=== PATIENT | male | born 1950 | race African-American/Black ===

== ENCOUNTER 2018-09-08 02:31 | Inpatient (IN) | payer OTHER ==
[2018-09-08] MEDS: ETOMIDATE 20 MG INJ IV (02:48)
[2018-09-08] MEDS: SUCCINYLCHOLINE CHLORIDE 100 MG/5 ML SYG IV (02:48)
[2018-09-08] MEDS ORDERED: PROPOFOL 100 ML (02:49)
[2018-09-08 02:58] LABS: ADD MAN DIFF? NO
[2018-09-08 03:02] LABS: WHITE BLOOD COUNT 11.9 10^3/ul (4.8-10.8)
[2018-09-08 03:02] LABS: ABNORMAL IP MESSAGE 1; BASOPHILS % 0.3 % (0.0-2.0); EOSINOPHILS % 0.2 % (0.0-7.0); HEMATOCRIT 31.3 % (42.0-52.0); HEMOGLOBIN 8.5 g/dl (14.0-18.0); LYMPHOCYTES # 0.9 10^3/ul (0.8-2.9); LYMPHOCYTES % 7.9 % (15.0-51.0); MEAN CORPUSCULAR HEMOGLOBIN 22.3 pg (29.0-33.0); MEAN CORPUSCULAR HGB CONC 27.2 g/dl (32.0-37.0); MEAN CORPUSCULAR VOLUME 82.2 fl (82.0-101.0); MEAN PLATELET VOLUME 9.5 fl (7.4-10.4); MONOCYTE # 0.9 10^3/ul (0.3-0.9); MONOCYTES % 7.6 % (0.0-11.0); NEUTROPHIL # 9.9 10^3/ul (1.6-7.5); NEUTROPHILS % 82.8 % (39.0-77.0); NUCLEATED RED BLOOD CELLS% 0.2 /100WBC (0.0-0.0); PLATELET COUNT 372 10^3/UL (140-415); POSITIVE DIFF @See below; RED BLOOD COUNT 3.81 10^6/ul (4.70-6.10); RED CELL DISTRIBUTION WIDTH 15.8 % (11.5-14.5)
[2018-09-08] MEDS: CEFEPIME 2GM/50 ML (PMX) 50 ML IVPB (03:11)
[2018-09-08] MEDS ORDERED: PROPOFOL 100 ML IV (03:15)
[2018-09-08 03:18] LABS: BLOOD UREA NITROGEN 32 mg/dl (7-20); CALCIUM 9.1 mg/dl (8.4-10.2); CHLORIDE 82 mmol/L (97-110); CREATININE 0.91 mg/dl (0.61-1.24); Estimated GFR > 60 mL/min (>60); GLUCOSE 222 mg/dl (70-220); POTASSIUM 5.9 mmol/L (3.5-5.1); SODIUM 139 mmol/L (135-144)
[2018-09-08 03:22] LABS: INR 1.42; PROTIME 17.6 Sec (11.9-14.9); PT RATIO 1.4
[2018-09-08 03:23] LABS: PARTIAL THROMBOPLASTIN TIME 40.5 Sec (23.0-35.0)
[2018-09-08 03:24] LABS: LACTIC ACID 2.4 mmol/L (0.5-2.0)
[2018-09-08] MEDS: MIDAZOLAM (DRIP) 50 mg/50 mL 50 ML IV ×3 (03:33→17:00)
[2018-09-08] MEDS: HYDROmorphONE 1 MG/ML SYG IV (03:34)
[2018-09-08] MEDS: SODIUM CHLORIDE 0.9% 1L BAG IV* (03:34)
[2018-09-08 03:39] LABS: ANION GAP 7 (5-13); TROPONIN-I 0.027 ng/ml (0.000-0.120)
[2018-09-08] MEDS: VANCOMYCIN 1 GM (PMX) 250 ML IVPB (03:39)
[2018-09-08 03:40] LABS: CARBON DIOXIDE 50 mmol/L (21-31)
[2018-09-08] MEDS ORDERED: NORepinephrine 8MG/250 ML (PMX 250 ML (03:45)
[2018-09-08 04:01] LABS: AADO2 Arterial 530.8 mmHg (7.0-24.0); Allen Test ACCEPTAB; Arterial Base Excess 12.9 mmol/L (-3.0-3); Arterial Blood Gas Oxygen Sat 95.2 mmHG (95.0-98.0); Arterial COHb 0.4 % (0.0-3.0); Arterial Fraction of Oxyhgb 94.4 % (93.0-99.0); Arterial MetHb 0.4 % (0.0-1.5); Arterial Total Hemglobin 8.4 g/dl (12.0-18.0); Arterial pCO2 93.7 mmhg (35-45); MODE VENT - AC; Site Left Radial
[2018-09-08] MEDS: NORepinephrine 8MG/250 ML (PMX 250 ML IV (04:05)
[2018-09-08] MEDS ORDERED: FENTAnyl (DRIP) 1000 mcg/100mL 100 ML IV (05:00)
[2018-09-08] MEDS ORDERED: IPRATROPIUM (HFA) 12.9 GM INHALER INH (05:00)
[2018-09-08] MEDS: INSULIN ASPART [NOVOLOG] 3 ML PEN SC ×5 (05:00→21:00)
[2018-09-08] MEDS ORDERED: ALBUTEROL HFA 8 GM INHALER INH (05:00)
[2018-09-08 05:45] LABS: LACTIC ACID 1.7 mmol/L (0.5-2.0)
[2018-09-08] MEDS: PANTOPRAZOLE 40 MG INJ IV (06:20)
[2018-09-08] MEDS: PIPER-TAZO 3.375 GM IV (PMX) 100 ML IVPB ×3 (06:20→17:28)
[2018-09-08] MEDS ORDERED: GLUCOSE GEL 15 GRAM TUBE PO ×2 (06:30)
[2018-09-08] MEDS ORDERED: GLUCOSE GEL 15 GRAM TUBE BUCCAL (06:30)
[2018-09-08] MEDS ORDERED: VANCOMYCIN IV PER PHARMACY XX (06:30)
[2018-09-08] MEDS ORDERED: GLUCAGON 1 MG INJ IM (06:30)
[2018-09-08] MEDS ORDERED: DEXTROSE 50% 50 ML SYRINGE IV ×2 (06:30)
[2018-09-08] MEDS: FENTAnyl (DRIP) 1000 mcg/100mL 100 ML IV ×3 (06:33→22:32)
[2018-09-08] MEDS ORDERED: ETOMIDATE 20 MG INJ (07:00)
[2018-09-08] MEDS: VANCOMYCIN 1 GM in 250 ML IVPB (07:20)
[2018-09-08] MEDS: SOD CHLORIDE 0.9% 1,000 ML IV ×2 (07:23→20:45)
[2018-09-08 07:36] LABS: Allen Test ACCEPTAB; Arterial Base Excess 19.2 mmol/L (-3.0-3); Arterial Blood Gas Oxygen Sat 96.4 mmHG (95.0-98.0); Arterial COHb 0.3 % (0.0-3.0); Arterial Fraction of Oxyhgb 95.7 % (93.0-99.0); Arterial MetHb 0.4 % (0.0-1.5); Arterial Total Hemglobin 8.7 g/dl (12.0-18.0); Arterial pCO2 53.6 mmhg (35-45); MODE VENT - AC; Site Left Radial
[2018-09-08] MEDS: ENOXAPARIN 30 MG/0.3 ML SYG SC ×2 (08:45→20:49)
[2018-09-08] MEDS: ENOXAPARIN 100 MG/ML SYG SC ×2 (08:47→20:49)
[2018-09-08 10:29] LABS: ADD MAN DIFF? NO
[2018-09-08 10:35] LABS: WHITE BLOOD COUNT 11.7 10^3/ul (4.8-10.8)
[2018-09-08 10:35] LABS: ABNORMAL IP MESSAGE 1; BASOPHILS % 0.1 % (0.0-2.0); EOSINOPHILS % 0.2 % (0.0-7.0); HEMATOCRIT 26.1 % (42.0-52.0); HEMOGLOBIN 7.4 g/dl (14.0-18.0); LYMPHOCYTES # 0.8 10^3/ul (0.8-2.9); MEAN CORPUSCULAR HEMOGLOBIN 22.6 pg (29.0-33.0); MEAN CORPUSCULAR HGB CONC 28.4 g/dl (32.0-37.0); MEAN CORPUSCULAR VOLUME 79.8 fl (82.0-101.0); MEAN PLATELET VOLUME 9.6 fl (7.4-10.4); MONOCYTES % 8.3 % (0.0-11.0); NEUTROPHIL # 9.8 10^3/ul (1.6-7.5); NEUTROPHILS % 83.6 % (39.0-77.0); NUCLEATED RED BLOOD CELLS% 0.3 /100WBC (0.0-0.0); PLATELET COUNT 313 10^3/UL (140-415); POSITIVE DIFF @See below; RED BLOOD COUNT 3.27 10^6/ul (4.70-6.10); RED CELL DISTRIBUTION WIDTH 15.9 % (11.5-14.5)
[2018-09-08 10:52] LABS: LACTIC ACID 1.8 mmol/L (0.5-2.0)
[2018-09-08 10:57] LABS: CREATINE KINASE < 20 IU/L (23-200)
[2018-09-08 11:02] LABS: CK-MB 0.26 ng/ml (0.0-2.4)
[2018-09-08 11:06] LABS: TROPONIN-I 0.046 ng/ml (0.000-0.120)
[2018-09-08 11:16] LABS: ALANINE AMINOTRANSFERASE 28 IU/L (13-69); ALBUMIN 2.9 g/dl (3.3-4.9); ALBUMIN/GLOBULIN RATIO 1.03; ALKALINE PHOSPHATASE 70 IU/L (42-121); ASPARTATE AMINO TRANSFERASE 15 IU/L (15-46); BILIRUBIN,INDIRECT 0.4 mg/dl (0-1.1); BILIRUBIN,TOTAL 0.4 mg/dl (0.2-1.3); BLOOD UREA NITROGEN 30 mg/dl (7-20); CALCIUM 8.3 mg/dl (8.4-10.2); CHLORIDE 90 mmol/L (97-110); CREATININE 0.69 mg/dl (0.61-1.24); Estimated GFR > 60 mL/min (>60); GLUCOSE 118 mg/dl (70-220); POTASSIUM 4.7 mmol/L (3.5-5.1); SODIUM 138 mmol/L (135-144); TOTAL PROTEIN 5.7 g/dl (6.1-8.1)
[2018-09-08 11:19] LABS: IRON 43 ug/dl (35-150)
[2018-09-08 11:25] LABS: ANION GAP 7 (5-13)
[2018-09-08 11:27] LABS: CARBON DIOXIDE 41 mmol/L (21-31)
[2018-09-08 11:28] LABS: % IRON SATURATION 18 % SAT (22-52); TOTAL IRON BINDING CAPACITY 243 ug/dl (241-421)
[2018-09-08] MEDS: VANCOMYCIN 1.5 GM in SOD CHLORIDE 0.9% 250 ML IVPB (15:20)
[2018-09-08 17:25] LABS: LACTIC ACID 1.7 mmol/L (0.5-2.0)
[2018-09-08] MEDS: ACETAMINOPHEN 650MG/20.3ML CUP PO (18:25)
[2018-09-08 22:50] LABS: LACTIC ACID 1.5 mmol/L (0.5-2.0)
[2018-09-09] MEDS: PIPER-TAZO 3.375 GM IV (PMX) 100 ML IVPB ×4 (00:09→17:50)
[2018-09-09] MEDS: MIDAZOLAM (DRIP) 50 mg/50 mL 50 ML IV ×3 (00:41→18:43)
[2018-09-09] MEDS: INSULIN ASPART [NOVOLOG] 3 ML PEN SC ×6 (00:43→20:51)
[2018-09-09] MEDS: NORepinephrine 8MG/250 ML (PMX 250 ML IV (00:44)
[2018-09-09] MEDS: VANCOMYCIN 1.5 GM in SOD CHLORIDE 0.9% 250 ML IVPB (04:01)
[2018-09-09] MEDS: PANTOPRAZOLE 40 MG INJ IV (05:04)
[2018-09-09 05:40] LABS: ADD MAN DIFF? NO
[2018-09-09 05:43] LABS: BASOPHIL # 0.1 10^3/ul (0.0-0.1); BASOPHILS % 0.6 % (0.0-2.0); EOSINOPHILS # 0.1 10^3/ul (0.0-0.5); EOSINOPHILS % 0.6 % (0.0-7.0); HEMATOCRIT 24.4 % (42.0-52.0); HEMOGLOBIN 7.1 g/dl (14.0-18.0); LYMPHOCYTES # 0.9 10^3/ul (0.8-2.9); LYMPHOCYTES % 8.1 % (15.0-51.0); MEAN CORPUSCULAR HEMOGLOBIN 22.8 pg (29.0-33.0); MEAN CORPUSCULAR HGB CONC 29.1 g/dl (32.0-37.0); MEAN CORPUSCULAR VOLUME 78.2 fl (82.0-101.0); MEAN PLATELET VOLUME 9.7 fl (7.4-10.4); MONOCYTE # 0.8 10^3/ul (0.3-0.9); MONOCYTES % 7.8 % (0.0-11.0); NEUTROPHIL # 8.6 10^3/ul (1.6-7.5); NEUTROPHILS % 81.9 % (39.0-77.0); NUCLEATED RED BLOOD CELLS% 0.4 /100WBC (0.0-0.0); PLATELET COUNT 306 10^3/UL (140-415); RED BLOOD COUNT 3.12 10^6/ul (4.70-6.10); RED CELL DISTRIBUTION WIDTH 16.7 % (11.5-14.5)
[2018-09-09 05:43] LABS: WHITE BLOOD COUNT 10.5 10^3/ul (4.8-10.8)
[2018-09-09 06:17] LABS: BLOOD UREA NITROGEN 24 mg/dl (7-20); CALCIUM 7.8 mg/dl (8.4-10.2); CHLORIDE 95 mmol/L (97-110); CREATININE 0.88 mg/dl (0.61-1.24); Estimated GFR > 60 mL/min (>60); GLUCOSE 179 mg/dl (70-220); POTASSIUM 4.1 mmol/L (3.5-5.1); SODIUM 140 mmol/L (135-144)
[2018-09-09 06:26] LABS: ANION GAP 5 (5-13)
[2018-09-09 06:50] LABS: CARBON DIOXIDE 40 mmol/L (21-31)
[2018-09-09] MEDS: ENOXAPARIN 60 MG/0.6 ML SYG SC ×2 (08:09→20:52)
[2018-09-09 10:40] LABS: AADO2 Arterial 263.6 mmHg (7.0-24.0); Allen Test ACCEPTAB; Arterial Base Excess 13.9 mmol/L (-3.0-3); Arterial Blood Gas Oxygen Sat 89.8 mmHG (95.0-98.0); Arterial COHb 0.7 % (0.0-3.0); Arterial Fraction of Oxyhgb 88.8 % (93.0-99.0); Arterial HCO3 36.6 mmol/L (22.0-26.0); Arterial MetHb 0.4 % (0.0-1.5); Arterial Total Hemglobin 8.5 g/dl (12.0-18.0); Arterial pCO2 38.1 mmhg (35-45); MODE VENT - AC; Site Left Radial
[2018-09-09] MEDS: SOD CHLORIDE 0.9% 1,000 ML IV ×2 (10:50→20:33)
[2018-09-09] MEDS: LIDOCAINE 1% (MPF) 5 ML VIAL SC (11:00)
[2018-09-09] MEDS: IOHEXOL 300MG/ML 150 ML BTL (11:39)
[2018-09-09] MEDS: SOD CHLORIDE 0.9% 100 ML (11:39)
[2018-09-09 15:34] LABS: VANCOMYCIN,TROUGH 17.5 ug/ml (10.0-20.0)
[2018-09-09] MEDS: FENTAnyl (DRIP) 1000 mcg/100mL 100 ML IV (17:15)
[2018-09-09] MEDS: VANCOMYCIN 1.25 GM in SOD CHLORIDE 0.9% 250 ML IVPB (17:50)
[2018-09-09] MEDS: TIMOLOL 0.5% 5 ML OPH RIGHT EYE (20:49)
[2018-09-09] MEDS: INSULIN GLARGINE [LANTus] (100 UNITS/ML) SYG SC (20:51)
[2018-09-10] MEDS: PIPER-TAZO 3.375 GM IV (PMX) 100 ML IVPB ×5 (00:17→23:28)
[2018-09-10] MEDS: INSULIN ASPART [NOVOLOG] 3 ML PEN SC ×6 (00:39→20:32)
[2018-09-10] MEDS: ACETAMINOPHEN 650MG/20.3ML CUP PO ×2 (05:13→09:09)
[2018-09-10] MEDS: LANSOPRAZOLE 30 MG CAP GTB (05:13)
[2018-09-10] MEDS: VANCOMYCIN 1.25 GM in SOD CHLORIDE 0.9% 250 ML IVPB ×2 (05:14→17:55)
[2018-09-10 05:15] LABS: ADD MAN DIFF? NO
[2018-09-10] MEDS: SOD CHLORIDE 0.9% 1,000 ML IV ×2 (05:15→23:13)
[2018-09-10 05:23] LABS: ABNORMAL IP MESSAGE 1; BASOPHILS % 0.4 % (0.0-2.0); EOSINOPHILS # 0.3 10^3/ul (0.0-0.5); EOSINOPHILS % 2.7 % (0.0-7.0); LYMPHOCYTES # 0.8 10^3/ul (0.8-2.9); LYMPHOCYTES % 7.2 % (15.0-51.0); MEAN CORPUSCULAR HEMOGLOBIN 22.3 pg (29.0-33.0); MEAN CORPUSCULAR VOLUME 79.6 fl (82.0-101.0); MEAN PLATELET VOLUME 9.7 fl (7.4-10.4); MONOCYTE # 0.9 10^3/ul (0.3-0.9); MONOCYTES % 8.3 % (0.0-11.0); NEUTROPHIL # 8.8 10^3/ul (1.6-7.5); NEUTROPHILS % 80.8 % (39.0-77.0); NUCLEATED RED BLOOD CELLS% 0.2 /100WBC (0.0-0.0); PLATELET COUNT 278 10^3/UL (140-415); POSITIVE DIFF @See below; RED BLOOD COUNT 3.14 10^6/ul (4.70-6.10); RED CELL DISTRIBUTION WIDTH 17.2 % (11.5-14.5)
[2018-09-10 05:23] LABS: WHITE BLOOD COUNT 10.9 10^3/ul (4.8-10.8)
[2018-09-10] MEDS: NORepinephrine 8MG/250 ML (PMX 250 ML IV (05:23)
[2018-09-10 05:50] LABS: MAGNESIUM 2.8 mg/dl (1.7-2.5)
[2018-09-10 05:50] LABS: PHOSPHORUS 2.4 mg/dl (2.5-4.9)
[2018-09-10 05:56] LABS: BLOOD UREA NITROGEN 23 mg/dl (7-20); CALCIUM 8.3 mg/dl (8.4-10.2); CHLORIDE 99 mmol/L (97-110); CREATININE 0.96 mg/dl (0.61-1.24); Estimated GFR > 60 mL/min (>60); GLUCOSE 210 mg/dl (70-220); POTASSIUM 4.3 mmol/L (3.5-5.1); SODIUM 143 mmol/L (135-144)
[2018-09-10 06:10] LABS: ANION GAP 6 (5-13)
[2018-09-10 06:18] LABS: CARBON DIOXIDE 38 mmol/L (21-31)
[2018-09-10 07:41] LABS: Allen Test ACCEPTAB; Arterial Blood Gas Oxygen Sat 93.1 mmHG (95.0-98.0); Arterial COHb 0.2 % (0.0-3.0); Arterial Fraction of Oxyhgb 92.4 % (93.0-99.0); Arterial HCO3 42.2 mmol/L (22.0-26.0); Arterial MetHb 0.5 % (0.0-1.5); Arterial Total Hemglobin 8.2 g/dl (12.0-18.0); Arterial pCO2 64.3 mmhg (35-45); MODE VENT - AC; Site Left Radial
[2018-09-10] MEDS: ENOXAPARIN 60 MG/0.6 ML SYG SC ×2 (09:00→20:29)
[2018-09-10] MEDS: TIMOLOL 0.5% 5 ML OPH RIGHT EYE ×2 (09:04→20:26)
[2018-09-10 11:43] LABS: IMMEDIATE SPIN CROSSMATCH 1 2
[2018-09-10] MEDS: MIDAZOLAM (DRIP) 50 mg/50 mL 50 ML IV (11:58)
[2018-09-10] MEDS: INSULIN GLARGINE [LANTus] (100 UNITS/ML) SYG SC ×2 (12:37→20:31)
[2018-09-10] MEDS: LATANOPROST 0.005% 2.5 ML OPH BOTH EYES (21:00)
[2018-09-11] MEDS: MIDAZOLAM (DRIP) 50 mg/50 mL 50 ML IV ×3 (01:14→23:37)
[2018-09-11] MEDS: INSULIN ASPART [NOVOLOG] 3 ML PEN SC ×6 (01:43→20:29)
[2018-09-11] MEDS: FENTAnyl (DRIP) 1000 mcg/100mL 100 ML IV ×2 (01:46→23:27)
[2018-09-11] MEDS: LANSOPRAZOLE 30 MG CAP GTB (05:08)
[2018-09-11] MEDS: PIPER-TAZO 3.375 GM IV (PMX) 100 ML IVPB ×4 (05:08→23:29)
[2018-09-11 05:18] LABS: ADD MAN DIFF? NO
[2018-09-11 05:20] LABS: ABNORMAL IP MESSAGE 1; BASOPHIL # 0.1 10^3/ul (0.0-0.1); BASOPHILS % 0.4 % (0.0-2.0); EOSINOPHILS # 0.4 10^3/ul (0.0-0.5); EOSINOPHILS % 3.2 % (0.0-7.0); HEMATOCRIT 27.6 % (42.0-52.0); HEMOGLOBIN 7.9 g/dl (14.0-18.0); LYMPHOCYTES # 0.7 10^3/ul (0.8-2.9); LYMPHOCYTES % 5.7 % (15.0-51.0); MEAN CORPUSCULAR HEMOGLOBIN 23.5 pg (29.0-33.0); MEAN CORPUSCULAR HGB CONC 28.6 g/dl (32.0-37.0); MEAN CORPUSCULAR VOLUME 82.1 fl (82.0-101.0); MEAN PLATELET VOLUME 10.2 fl (7.4-10.4); MONOCYTE # 0.8 10^3/ul (0.3-0.9); MONOCYTES % 6.2 % (0.0-11.0); NEUTROPHIL # 10.1 10^3/ul (1.6-7.5); NEUTROPHILS % 83.8 % (39.0-77.0); NUCLEATED RED BLOOD CELLS% 0.3 /100WBC (0.0-0.0); PLATELET COUNT 238 10^3/UL (140-415); POSITIVE DIFF @See below; RED BLOOD COUNT 3.36 10^6/ul (4.70-6.10); RED CELL DISTRIBUTION WIDTH 17.4 % (11.5-14.5)
[2018-09-11 05:20] LABS: WHITE BLOOD COUNT 12.1 10^3/ul (4.8-10.8)
[2018-09-11 05:51] LABS: BLOOD UREA NITROGEN 25 mg/dl (7-20); CALCIUM 8.6 mg/dl (8.4-10.2); CHLORIDE 100 mmol/L (97-110); CREATININE 0.87 mg/dl (0.61-1.24); Estimated GFR > 60 mL/min (>60); GLUCOSE 185 mg/dl (70-220); MAGNESIUM 2.9 mg/dl (1.7-2.5); PHOSPHORUS 2.9 mg/dl (2.5-4.9); POTASSIUM 4.4 mmol/L (3.5-5.1); SODIUM 144 mmol/L (135-144)
[2018-09-11 05:52] LABS: VANCOMYCIN,TROUGH 16.8 ug/ml (10.0-20.0)
[2018-09-11] MEDS: VANCOMYCIN 1.25 GM in SOD CHLORIDE 0.9% 250 ML IVPB ×2 (06:19→17:40)
[2018-09-11 06:46] LABS: ANION GAP 6 (5-13)
[2018-09-11 06:47] LABS: CARBON DIOXIDE 38 mmol/L (21-31)
[2018-09-11 07:32] LABS: Allen Test ACCEPTAB; Arterial Base Excess 12.9 mmol/L (-3.0-3); Arterial Blood Gas Oxygen Sat 90.9 mmHG (95.0-98.0); Arterial COHb 0.4 % (0.0-3.0); Arterial Fraction of Oxyhgb 90.1 % (93.0-99.0); Arterial HCO3 39.2 mmol/L (22.0-26.0); Arterial MetHb 0.5 % (0.0-1.5); Arterial Total Hemglobin 9.4 g/dl (12.0-18.0); Arterial pCO2 61.7 mmhg (35-45); MODE VENT - AC; Site Left Radial
[2018-09-11] MEDS ORDERED: FUROSEMIDE 40 MG INJ (08:08)
[2018-09-11] MEDS: TIMOLOL 0.5% 5 ML OPH RIGHT EYE ×2 (08:16→20:26)
[2018-09-11] MEDS: ENOXAPARIN 60 MG/0.6 ML SYG SC ×2 (08:17→20:28)
[2018-09-11] MEDS: FUROSEMIDE 40 MG INJ IV (09:15)
[2018-09-11] MEDS: SOD CHLORIDE 0.9% 1,000 ML IV (13:00)
[2018-09-11] MEDS: NORepinephrine 8MG/250 ML (PMX 250 ML IV (14:44)
[2018-09-11] MEDS: ACETAMINOPHEN 650MG/20.3ML CUP PO (15:48)
[2018-09-11] MEDS: INSULIN GLARGINE [LANTus] (100 UNITS/ML) SYG SC (20:27)
[2018-09-11] MEDS: LATANOPROST 0.005% 2.5 ML OPH BOTH EYES (20:29)
[2018-09-12] MEDS: INSULIN ASPART [NOVOLOG] 3 ML PEN SC ×3 (01:04→09:25)
[2018-09-12] MEDS: PIPER-TAZO 3.375 GM IV (PMX) 100 ML IVPB ×4 (05:09→23:34)
[2018-09-12] MEDS: LANSOPRAZOLE 30 MG CAP GTB (05:09)
[2018-09-12 05:29] LABS: ADD MAN DIFF? NO
[2018-09-12 05:31] LABS: ABNORMAL IP MESSAGE 1; BASOPHILS % 0.3 % (0.0-2.0); EOSINOPHILS # 0.2 10^3/ul (0.0-0.5); HEMOGLOBIN 8.2 g/dl (14.0-18.0); LYMPHOCYTES # 0.6 10^3/ul (0.8-2.9); LYMPHOCYTES % 5.5 % (15.0-51.0); MEAN CORPUSCULAR HEMOGLOBIN 23.6 pg (29.0-33.0); MEAN CORPUSCULAR HGB CONC 28.3 g/dl (32.0-37.0); MEAN CORPUSCULAR VOLUME 83.3 fl (82.0-101.0); MEAN PLATELET VOLUME 10.2 fl (7.4-10.4); MONOCYTE # 0.9 10^3/ul (0.3-0.9); MONOCYTES % 8.2 % (0.0-11.0); NEUTROPHIL # 9.5 10^3/ul (1.6-7.5); NEUTROPHILS % 83.2 % (39.0-77.0); NUCLEATED RED BLOOD CELLS% 0.2 /100WBC (0.0-0.0); PLATELET COUNT 244 10^3/UL (140-415); POSITIVE DIFF @See below; RED BLOOD COUNT 3.48 10^6/ul (4.70-6.10); RED CELL DISTRIBUTION WIDTH 18.3 % (11.5-14.5)
[2018-09-12 05:31] LABS: WHITE BLOOD COUNT 11.5 10^3/ul (4.8-10.8)
[2018-09-12] MEDS: VANCOMYCIN 1.25 GM in SOD CHLORIDE 0.9% 250 ML IVPB ×2 (05:40→17:24)
[2018-09-12 06:51] LABS: ANION GAP 5 (5-13); BLOOD UREA NITROGEN 30 mg/dl (7-20); CALCIUM 8.6 mg/dl (8.4-10.2); CARBON DIOXIDE 39 mmol/L (21-31); CHLORIDE 103 mmol/L (97-110); CREATININE 1.01 mg/dl (0.61-1.24); Estimated GFR > 60 mL/min (>60); GLUCOSE 219 mg/dl (70-220); POTASSIUM 4.7 mmol/L (3.5-5.1); SODIUM 147 mmol/L (135-144)
[2018-09-12 07:41] LABS: AADO2 Arterial 294.7 mmHg (7.0-24.0); Allen Test ACCEPTAB; Arterial Base Excess 10.4 mmol/L (-3.0-3); Arterial Blood Gas Oxygen Sat 89.9 mmHG (95.0-98.0); Arterial COHb 0.3 % (0.0-3.0); Arterial Fraction of Oxyhgb 89.1 % (93.0-99.0); Arterial HCO3 37.4 mmol/L (22.0-26.0); Arterial MetHb 0.6 % (0.0-1.5); Arterial pCO2 64.9 mmhg (35-45); MODE VENT - AC; Site Left Radial
[2018-09-12] MEDS: ENOXAPARIN 60 MG/0.6 ML SYG SC ×2 (09:16→20:37)
[2018-09-12] MEDS: ACETAMINOPHEN 650MG/20.3ML CUP PO (09:16)
[2018-09-12] MEDS: TIMOLOL 0.5% 5 ML OPH RIGHT EYE ×2 (09:17→20:36)
[2018-09-12] MEDS: MIDAZOLAM (DRIP) 50 mg/50 mL 50 ML IV ×3 (10:01→20:37)
[2018-09-12] MEDS: ACCU-CHEK XX ×14 (10:30→23:26)
[2018-09-12] MEDS ORDERED: DEXTROSE 50% 50 ML SYRINGE IV ×2 (10:30)
[2018-09-12] MEDS: INSULIN HUMAN REGULAR 100 UNIT in SOD CHLORIDE 0.9% 99 ML IV (12:23)
[2018-09-12] MEDS: FLUCONAZOLE 100 MG TAB PO (15:00)
[2018-09-12] MEDS: BALSAM PERU/CASTOR OIL 60 GM TUBE TOP (15:00)
[2018-09-12] MEDS: POLYETHYLENE GLYCOL 17 GM PACKET NGT (17:43)
[2018-09-12] MEDS: FENTAnyl (DRIP) 1000 mcg/100mL 100 ML IV (19:25)
[2018-09-12] MEDS: DOCUSATE SODIUM 10 MG/ML (10ML CUP) NGT (20:36)
[2018-09-12] MEDS: LATANOPROST 0.005% 2.5 ML OPH BOTH EYES (20:36)
[2018-09-13] MEDS: ACCU-CHEK XX ×24 (00:37→23:24)
[2018-09-13 05:08] LABS: ADD MAN DIFF? NO
[2018-09-13 05:13] LABS: ABNORMAL IP MESSAGE 1; BASOPHILS % 0.4 % (0.0-2.0); EOSINOPHILS # 0.2 10^3/ul (0.0-0.5); EOSINOPHILS % 1.8 % (0.0-7.0); HEMATOCRIT 28.8 % (42.0-52.0); LYMPHOCYTES # 0.8 10^3/ul (0.8-2.9); LYMPHOCYTES % 7.2 % (15.0-51.0); MEAN CORPUSCULAR HEMOGLOBIN 23.1 pg (29.0-33.0); MEAN CORPUSCULAR HGB CONC 27.8 g/dl (32.0-37.0); MONOCYTE # 0.9 10^3/ul (0.3-0.9); MONOCYTES % 8.2 % (0.0-11.0); NEUTROPHIL # 8.5 10^3/ul (1.6-7.5); NEUTROPHILS % 81.6 % (39.0-77.0); PLATELET COUNT 220 10^3/UL (140-415); POSITIVE DIFF @See below; RED BLOOD COUNT 3.47 10^6/ul (4.70-6.10); RED CELL DISTRIBUTION WIDTH 19.2 % (11.5-14.5)
[2018-09-13 05:13] LABS: WHITE BLOOD COUNT 10.4 10^3/ul (4.8-10.8)
[2018-09-13] MEDS: LANSOPRAZOLE 30 MG CAP GTB (05:25)
[2018-09-13] MEDS: PIPER-TAZO 3.375 GM IV (PMX) 100 ML IVPB ×4 (05:25→23:24)
[2018-09-13 05:32] LABS: BLOOD UREA NITROGEN 36 mg/dl (7-20); CALCIUM 8.9 mg/dl (8.4-10.2); CHLORIDE 104 mmol/L (97-110); CREATININE 1.24 mg/dl (0.61-1.24); Estimated GFR > 60 mL/min (>60); GLUCOSE 105 mg/dl (70-220); MAGNESIUM 3.2 mg/dl (1.7-2.5); PHOSPHORUS 4.2 mg/dl (2.5-4.9); POTASSIUM 4.8 mmol/L (3.5-5.1); SODIUM 147 mmol/L (135-144)
[2018-09-13] MEDS: MIDAZOLAM (DRIP) 50 mg/50 mL 50 ML IV ×2 (05:34→19:31)
[2018-09-13 05:38] LABS: ANION GAP 3 (5-13)
[2018-09-13 05:59] LABS: CARBON DIOXIDE 40 mmol/L (21-31)
[2018-09-13] MEDS: VANCOMYCIN 1.25 GM in SOD CHLORIDE 0.9% 250 ML IVPB (06:00)
[2018-09-13 09:13] LABS: AADO2 Arterial 508.1 mmHg (7.0-24.0); Allen Test ACCEPTAB; Arterial Base Excess 12.4 mmol/L (-3.0-3); Arterial Blood Gas Oxygen Sat 86.8 mmHG (95.0-98.0); Arterial COHb 0.4 % (0.0-3.0); Arterial Fraction of Oxyhgb 86.3 % (93.0-99.0); Arterial HCO3 40.4 mmol/L (22.0-26.0); Arterial MetHb 0.2 % (0.0-1.5); Arterial pCO2 76.7 mmhg (35-45); MODE VENT - AC; Site Left Radial
[2018-09-13] MEDS: FLUCONAZOLE 100 MG TAB PO (09:18)
[2018-09-13] MEDS: DOCUSATE SODIUM 10 MG/ML (10ML CUP) NGT ×2 (09:18→21:00)
[2018-09-13] MEDS: ENOXAPARIN 60 MG/0.6 ML SYG SC ×2 (09:19→21:39)
[2018-09-13] MEDS: BALSAM PERU/CASTOR OIL 60 GM TUBE TOP (09:19)
[2018-09-13] MEDS: POLYETHYLENE GLYCOL 17 GM PACKET NGT (09:19)
[2018-09-13] MEDS: TIMOLOL 0.5% 5 ML OPH RIGHT EYE ×2 (09:20→21:37)
[2018-09-13] MEDS: FENTAnyl (DRIP) 1000 mcg/100mL 100 ML IV (11:25)
[2018-09-13] MEDS: EPINEPHrine 0.1 MG/ML SYG IV (11:45)
[2018-09-13] MEDS: ACETYLCYSTEINE 20% 4 ML VIAL NEB (11:50)
[2018-09-13 12:31] LABS: AADO2 Arterial 568.8 mmHg (7.0-24.0); Allen Test ACCEPTAB; Arterial Blood Gas Oxygen Sat 73.2 mmHG (95.0-98.0); Arterial COHb 0.4 % (0.0-3.0); Arterial Fraction of Oxyhgb 72.7 % (93.0-99.0); Arterial MetHb 0.3 % (0.0-1.5); Arterial pCO2 96.6 mmhg (35-45); MODE VENT - AC; Site Left Radial
[2018-09-13] MEDS: NORepinephrine 8MG/250 ML (PMX 250 ML IV ×2 (13:32→21:34)
[2018-09-13 17:11] LABS: VANCOMYCIN,TROUGH 26.9 ug/ml (10.0-20.0)
[2018-09-13] MEDS: LATANOPROST 0.005% 2.5 ML OPH BOTH EYES (21:37)
[2018-09-14] MEDS: ACCU-CHEK XX ×24 (00:30→23:35)
[2018-09-14] MEDS: ACETAMINOPHEN 650 MG SUPP PR (03:46)
[2018-09-14] MEDS: FENTAnyl (DRIP) 1000 mcg/100mL 100 ML IV ×2 (04:13→20:33)
[2018-09-14 05:07] LABS: ADD MAN DIFF? NO
[2018-09-14 05:08] LABS: ABNORMAL IP MESSAGE 1; BASOPHILS % 0.2 % (0.0-2.0); EOSINOPHILS % 0.2 % (0.0-7.0); HEMATOCRIT 30.3 % (42.0-52.0); HEMOGLOBIN 8.5 g/dl (14.0-18.0); LYMPHOCYTES # 1.1 10^3/ul (0.8-2.9); LYMPHOCYTES % 8.9 % (15.0-51.0); MEAN CORPUSCULAR HEMOGLOBIN 22.9 pg (29.0-33.0); MEAN CORPUSCULAR HGB CONC 28.1 g/dl (32.0-37.0); MEAN CORPUSCULAR VOLUME 81.7 fl (82.0-101.0); MEAN PLATELET VOLUME 10.1 fl (7.4-10.4); MONOCYTES % 8.1 % (0.0-11.0); NEUTROPHIL # 10.3 10^3/ul (1.6-7.5); NEUTROPHILS % 81.7 % (39.0-77.0); PLATELET COUNT 291 10^3/UL (140-415); POSITIVE DIFF @See below; RED BLOOD COUNT 3.71 10^6/ul (4.70-6.10); RED CELL DISTRIBUTION WIDTH 18.9 % (11.5-14.5)
[2018-09-14 05:08] LABS: WHITE BLOOD COUNT 12.6 10^3/ul (4.8-10.8)
[2018-09-14 05:31] LABS: ANION GAP 6 (5-13); BLOOD UREA NITROGEN 48 mg/dl (7-20); CALCIUM 8.6 mg/dl (8.4-10.2); CARBON DIOXIDE 36 mmol/L (21-31); CHLORIDE 109 mmol/L (97-110); CREATININE 1.27 mg/dl (0.61-1.24); Estimated GFR > 60 mL/min (>60); GLUCOSE 101 mg/dl (70-220); POTASSIUM 4.9 mmol/L (3.5-5.1); SODIUM 151 mmol/L (135-144)
[2018-09-14] MEDS: PIPER-TAZO 3.375 GM IV (PMX) 100 ML IVPB ×4 (05:41→23:35)
[2018-09-14] MEDS: LANSOPRAZOLE 30 MG CAP GTB (05:41)
[2018-09-14] MEDS: MIDAZOLAM (DRIP) 50 mg/50 mL 50 ML IV ×2 (07:23→19:55)
[2018-09-14] MEDS: NORepinephrine 8MG/250 ML (PMX 250 ML IV ×2 (07:24→17:12)
[2018-09-14] MEDS: INSULIN HUMAN REGULAR 100 UNIT in SOD CHLORIDE 0.9% 99 ML IV (07:25)
[2018-09-14 07:26] LABS: AADO2 Arterial 609.9 mmHg (7.0-24.0); Allen Test ACCEPTAB; Arterial Base Excess 9.5 mmol/L (-3.0-3); Arterial Blood Gas Oxygen Sat 89.7 mmHG (95.0-98.0); Arterial COHb 0.3 % (0.0-3.0); Arterial Fraction of Oxyhgb 89.1 % (93.0-99.0); Arterial HCO3 34.1 mmol/L (22.0-26.0); Arterial MetHb 0.4 % (0.0-1.5); Arterial pCO2 46.8 mmhg (35-45); MODE VENT - AC; Site Left Radial
[2018-09-14] MEDS: TIMOLOL 0.5% 5 ML OPH RIGHT EYE ×2 (08:44→21:41)
[2018-09-14] MEDS: DOCUSATE SODIUM 10 MG/ML (10ML CUP) NGT ×2 (08:44→21:40)
[2018-09-14] MEDS: FLUCONAZOLE 100 MG TAB PO (08:44)
[2018-09-14] MEDS: POLYETHYLENE GLYCOL 17 GM PACKET NGT (08:44)
[2018-09-14] MEDS: ENOXAPARIN 60 MG/0.6 ML SYG SC ×2 (08:46→21:53)
[2018-09-14] MEDS: BALSAM PERU/CASTOR OIL 60 GM TUBE TOP (08:48)
[2018-09-14] MEDS: ACETYLCYSTEINE 20% 4 ML VIAL NEB ×3 (10:00→20:46)
[2018-09-14] MEDS: ALBUTEROL 0.083% (NEB) 2.5 MG/3 ML AMP HHN (10:00)
[2018-09-14] MEDS: VANCOMYCIN 1.25 GM in SOD CHLORIDE 0.9% 250 ML IVPB (10:33)
[2018-09-14] MEDS: ALBUTEROL HFA 8 GM INHALER INH ×2 (13:19→20:46)
[2018-09-14] MEDS: LATANOPROST 0.005% 2.5 ML OPH BOTH EYES (21:41)
[2018-09-15] MEDS: ACCU-CHEK XX ×15 (00:30→14:20)
[2018-09-15] MEDS: MIDAZOLAM (DRIP) 50 mg/50 mL 50 ML IV ×2 (02:00→13:34)
[2018-09-15] MEDS: ALBUTEROL HFA 8 GM INHALER INH ×3 (02:50→13:42)
[2018-09-15] MEDS: ACETYLCYSTEINE 20% 4 ML VIAL NEB ×3 (03:00→13:42)
[2018-09-15 04:56] LABS: ADD MAN DIFF? NO
[2018-09-15] MEDS: NORepinephrine 8MG/250 ML (PMX 250 ML IV ×2 (05:00→10:54)
[2018-09-15 05:12] LABS: AADO2 Arterial 432.2 mmHg (7.0-24.0); Allen Test ACCEPTAB; Arterial Base Excess 7.7 mmol/L (-3.0-3); Arterial Blood Gas Oxygen Sat 93.8 mmHG (95.0-98.0); Arterial COHb 0.3 % (0.0-3.0); Arterial Fraction of Oxyhgb 93.2 % (93.0-99.0); Arterial HCO3 34.1 mmol/L (22.0-26.0); Arterial MetHb 0.3 % (0.0-1.5); Arterial pCO2 59.8 mmhg (35-45); MODE VENT - AC; Site Left Radial
[2018-09-15] MEDS: LANSOPRAZOLE 30 MG CAP GTB (05:18)
[2018-09-15] MEDS: PIPER-TAZO 3.375 GM IV (PMX) 100 ML IVPB (05:19)
[2018-09-15 05:20] LABS: WHITE BLOOD COUNT 13.2 10^3/ul (4.8-10.8)
[2018-09-15 05:20] LABS: ABNORMAL IP MESSAGE 1; BASOPHILS % 0.2 % (0.0-2.0); EOSINOPHILS % 0.2 % (0.0-7.0); HEMATOCRIT 29.4 % (42.0-52.0); HEMOGLOBIN 8.3 g/dl (14.0-18.0); LYMPHOCYTES # 1.1 10^3/ul (0.8-2.9); LYMPHOCYTES % 8.2 % (15.0-51.0); MEAN CORPUSCULAR HEMOGLOBIN 23.5 pg (29.0-33.0); MEAN CORPUSCULAR HGB CONC 28.2 g/dl (32.0-37.0); MEAN CORPUSCULAR VOLUME 83.3 fl (82.0-101.0); MEAN PLATELET VOLUME 9.7 fl (7.4-10.4); MONOCYTES % 7.3 % (0.0-11.0); PLATELET COUNT 282 10^3/UL (140-415); POSITIVE DIFF @See below; RED BLOOD COUNT 3.53 10^6/ul (4.70-6.10); RED CELL DISTRIBUTION WIDTH 19.2 % (11.5-14.5)
[2018-09-15 05:38] LABS: ANION GAP 4 (5-13); BLOOD UREA NITROGEN 66 mg/dl (7-20); CALCIUM 8.4 mg/dl (8.4-10.2); CARBON DIOXIDE 38 mmol/L (21-31); CHLORIDE 110 mmol/L (97-110); CREATININE 2.15 mg/dl (0.61-1.24); Estimated GFR 37 mL/min (>60); GLUCOSE 116 mg/dl (70-220); POTASSIUM 4.9 mmol/L (3.5-5.1); SODIUM 152 mmol/L (135-144)
[2018-09-15] MEDS: FENTAnyl (DRIP) 1000 mcg/100mL 100 ML IV (06:03)
[2018-09-15 06:23] LABS: LACTIC ACID 2.3 mmol/L (0.5-2.0)
[2018-09-15] MEDS: POLYETHYLENE GLYCOL 17 GM PACKET NGT (08:54)
[2018-09-15] MEDS: ENOXAPARIN 60 MG/0.6 ML SYG SC (08:54)
[2018-09-15] MEDS: DOCUSATE SODIUM 10 MG/ML (10ML CUP) NGT (08:54)
[2018-09-15] MEDS: FLUCONAZOLE 100 MG TAB PO (08:54)
[2018-09-15 10:28] LABS: LACTIC ACID 2.3 mmol/L (0.5-2.0)
[2018-09-15] MEDS: BALSAM PERU/CASTOR OIL 60 GM TUBE TOP (10:40)
[2018-09-15] MEDS: TIMOLOL 0.5% 5 ML OPH RIGHT EYE (10:46)
[2018-09-15] MEDS: VANCOMYCIN 1.25 GM in SOD CHLORIDE 0.9% 250 ML IVPB (10:46)
[2018-09-15] MEDS: PIPER-TAZO 2.25 GM (PMX) 50 ML IVPB (12:02)
[2018-09-15] MEDS ORDERED: FLUCONAZOLE 100 MG TAB PO (14:00)
[2018-09-15] MEDS: LORAZEPAM 2 MG INJ IV (17:01)
[2018-09-15] MEDS: morphine (DRIP) 100 MG/100 ML 100 ML IV (17:01)
[2018-09-15] MEDS ORDERED: ZYVOX 600 MG TAB PO (21:00)
[2018-09-15] MEDS ORDERED: MEROPENEM 500MG/50 ML (PMX) 50 ML IVPB (21:00)
== END 2018-09-15 17:40 | disposition expired | DRG 870 ==
LOC: E/R 02:31 → ICU 04:56
PROVIDERS: Pediatrics
PROC: 5A1955Z Respiratory Ventilation, Greater than 96 Consecutive Hours (ICD-10-PCS; principal; 2018-09-08)
PROC: 02HV33Z Insertion of Infusion Device into Superior Vena Cava, Percutaneous Approach (ICD-10-PCS; 2018-09-09)
PROC: 30233N1 Transfusion of Nonautologous Red Blood Cells into Peripheral Vein, Percutaneous Approach (ICD-10-PCS; 2018-09-10)
PROC: 0BC38ZZ Extirpation of Matter from Right Main Bronchus, Via Natural or Artificial Opening Endoscopic (ICD-10-PCS; 2018-09-13)
DX: A41.9 Sepsis, unspecified organism (principal); R65.21 Severe sepsis with septic shock; J96.02 Acute respiratory failure with hypercapnia; J96.01 Acute respiratory failure with hypoxia; G93.41 Metabolic encephalopathy; J18.9 Pneumonia, unspecified organism; I50.33 Acute on chronic diastolic (congestive) heart failure; E87.3 Alkalosis; C34.90 Malignant neoplasm of unspecified part of unspecified bronchus or lung; E66.2 Morbid (severe) obesity with alveolar hypoventilation; J90 Pleural effusion, not elsewhere classified; N17.9 Acute kidney failure, unspecified; J44.0 Chronic obstructive pulmonary disease with (acute) lower respiratory infection; I11.0 Hypertensive heart disease with heart failure; T88.4XXA Failed or difficult intubation, initial encounter; Y84.9 Medical procedure, unspecified as the cause of abnormal reaction of the patient, or of later complication, without mention of misadventure at the time of the procedure; D64.9 Anemia, unspecified; H40.9 Unspecified glaucoma; Y95 Nosocomial condition; I95.9 Hypotension, unspecified; G47.30 Sleep apnea, unspecified; Z51.5 Encounter for palliative care; Z66 Do not resuscitate; Z86.718 Personal history of other venous thrombosis and embolism
CPT/HCPCS: 31500; 36415; 36430; 36569; 36600; 70491; 71045; 71260; 76937; 80048; 80053; 80202; 82550; 82553; 82728; 82803; 82962; 83540; 83605; 83735; 84100; 84484; 85025; 85610; 85730; 86644; 86850; 86900; 86901; 86920; 87040; 87070; 87081; 87275; 87276; 87279; 87280; 87400; 93005; 94002; 94003; 94640; 94770; 96365; 96375; 99291-25